=== PATIENT | male | born 1970 | race Two or more races ===

== ENCOUNTER 2016-03-16 09:46 | Emergency (ER) | payer OTHER, BC ==
[~2016-03-16] VITALS: Ht 167.6 cm; Wt 81.6 kg
[2016-03-16 10:01] VITALS: BP 131/70
--- NOTE | 2016-03-16 10:15 | Emergency Room Report ---
History of Present Illness General Chief Complaint: Sore Throat Source: Patient Present Illness HPI Patient is a 46-year-old male presented after increased sore throat and cough. The patient had gradual onset of symptoms was yesterday. He had he denied past medical history. The patient not been vomiting. He had gradual onset of a mild headache. He denied any neck stiffness. He noted multiple sick contacts at work. The patient stated that he had generalized body aches. Denied any skin rash. Allergies: Coded Allergies: No Known Allergies (Unverified , 03/16/16) Patient History Past Medical History: see triage record Reviewed Nursing Documentation: PMH: Agreed, PSxH: Agreed Nursing Documentation-PMH Past Medical History: No Stated History Review of Systems All Other Systems: negative except mentioned in HPI Physical Exam Vital Signs Date Time Temp Pulse Resp B/P Pulse Ox O2 Delivery O2 Flow Rate FiO2 03/16/16 09:56 100.4 67 16 131/70 100 Room Air General Appearance: well appearing, no apparent distress, alert, GCS 15 Head: normocephalic, atraumatic ENT: hearing grossly normal, normal voice Neck: full range of motion, supple Respiratory: lungs clear, normal breath sounds, no respiratory distress, speaking full sentences Gastrointestinal: normal bowel sounds, non tender, soft Musculoskeletal: no calf tenderness Neurologic: normal inspection, alert, oriented x3, responsive, 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 The patient shows no evidence of meningismus. Patient was given oral her Profen and prescription for ibuprofen. He is advised to remain off of work. The patient is advised to follow up with primary care doctor in 1-2 days. Patient is advised to return if any worsening condition or if any changes in status that are concerning. Last Vital Signs Date Time Temp Pulse Resp B/P Pulse Ox O2 Delivery O2 Flow Rate FiO2 03/16/16 10:01 100.4 63 16 131/70 100 Room Air Status: improved Disposition: HOME, SELF-CARE Condition: Stable Marco AJuwan Mar 16, 2016 10:15
[2016-03-16] MEDS ORDERED: ADULT WAL-100 MG/5 M ORAL (10:16)
[2016-03-16] MEDS ORDERED: IBUPROFEN600 MG ORAL (10:16)
[2016-03-16 10:26] VITALS: BP 131/70
== END 2016-03-16 10:33 | disposition home or self-care (01) ==
LOC: EMR 10:22
DX: J11.1 Influenza due to unidentified influenza virus with other respiratory manifestations (principal)
CPT/HCPCS: 99283

== ENCOUNTER 2018-04-22 10:51 | Emergency (ER) | payer BC, MEDICAID, OTHER ==
[~2018-04-22] VITALS: Ht 167.6 cm; Wt 81.6 kg
[~2018-04-22 10:51] MED LIST: ADULT WAL-100 MG/5 M ORAL; IBUPROFEN600 MG ORAL
[2018-04-22] MEDS ORDERED: NKM (11:00)
--- NOTE | 2018-04-22 11:07 | NUR ---
ED Nurse Note: Pt c/o back pain with painful urination since friday. Fever friday/fri and friday. Pt is AO x4, ambulatory.
--- NOTE | 2018-04-22 12:11 | NUR ---
ED Nurse Note: Urine sent.
[2018-04-22 12:17] LABS: APPEARANCE,URINE CLEAR; BILIRUBIN, URINE NEGATIVE (NEGATIVE); COLOR,URINE PALE YELLOW; GLUCOSE, URINE (UA) NEGATIVE (NEGATIVE); KETONES,URINE NEGATIVE (NEGATIVE); LEUKOCYTE ESTERASE ,URINE NEGATIVE (NEGATIVE); NITRITE,URINE NEGATIVE (NEGATIVE); PH,URINE 7 (4.5-8.0); PROTEIN,URINE NEGATIVE (NEGATIVE); UROBILINOGEN,URINE NORMAL MG/DL (0.0-1.0)
--- NOTE | 2018-04-22 12:22 | Emergency Room Report ---
History of Present Illness General Chief Complaint: Male Urogenital Problems Source: Patient Present Illness HPI 48-year-old male patient presents the ER with multiple complaints for the past 4 days. Reports subjective fever and cough symptoms at home. Also complaining of pain with urinating. Denies blood in his urine. Denies penile discharge. Reports any sexual monogamous relationship with his , denies concern for STI. Denies vomiting or diarrhea. Denies chest pain or shortness of breath. Reports symptoms during this time. States is not taking medication for relief of symptoms. Reports history of similar symptoms in the past. Reports generalized muscle aches and pains. Reports he took TheraFlu on days 1 and 2 of his symptoms and that helped get rid of his fever. Denies testicular pain or swelling. Denies genital lesions or rash. Reports did not receive flu vaccine this year. Also reports back pain. Denies bowel or bladder incontinence. Denies recent injury or accident. Reports able to ambulate.Denies bowel or bladder incontinence. Denies constipation. Reports pain worse with movement. Allergies: Coded Allergies: No Known Allergies (Unverified , 03/16/16) Patient History Past Medical History: see triage record Reviewed Nursing Documentation: PMH: Agreed; PSxH: Agreed Nursing Documentation-PMH Past Medical History: No Stated History Review of Systems All Other Systems: negative except mentioned in HPI Physical Exam Vital Signs Date Time Temp Pulse Resp B/P (MAP) Pulse Ox O2 Delivery O2 Flow Rate FiO2 04/22/18 10:57 99.0 67 18 145/83 98 Room Air Sp02 EP Interpretation: reviewed, normal General Appearance: well appearing, no apparent distress, alert, GCS 15, non- toxic Head: normocephalic, atraumatic Eyes: bilateral eye normal inspection, bilateral eye PERRL ENT: hearing grossly normal, normal pharynx, no angioedema, normal voice, uvula midline, moist mucus membranes Neck: full range of motion, no meningismus, no bony tend Respiratory: lungs clear, normal breath sounds, no rhonchi, no respiratory distress, no accessory muscle use, no wheezing, speaking full sentences Cardiovascular #1: regular rate, rhythm, no edema Gastrointestinal: non tender, soft, no mass, non-distended, no guarding, no rebound Genitourinary: no CVA tenderness Musculoskeletal: back normal, digits/nails normal, gait/station normal, normal range of motion, non-tender Neurologic: alert, oriented x3, responsive, motor strength/tone normal, sensory intact Psychiatric: mood/affect normal Skin: no rash Lymphatic: no adenopathy Medical Decision Making PA Attestation Dr. Strickland is my supervising Physician whom patient management has been discussed with. Diagnostic Impression: Primary Impression: Influenza-like symptoms Additional Impression: Dysuria ER Course Pt presents to ED c/o flu-like symptoms and dysuria. DDX considered but are not limited to influenza, viral URI, pneumonia, strep throat, rhinitis, sinusitis, otitis media, otitis externa, cystitis, pyelonephritis, STI, hydronephrosis, kidney stones, sprain, strain. No abdominal TTP, negative obturator, negative Sullivan, negative Rovsing, low suspicion for cholecystitis or appendicitis, does not require imaging or labs at this time. No bowel or bladder incontinence, low suspicion for cauda equina. No acute injury or trauma, does not require x-ray at this time, low suspicion for fracture. Denies acute injury or trauma, does not require xray at this time, low suspicion for fracture. VITAL SIGNS are WNL, patient is afebrile. ER COURSE: Lungs clear to auscultation, no wheezes, rhonci or rales. patient afebrile. Low suspicion for pneumonia, will not order CXR at this time. no tonsillar exudates, no pharyngeal erythema, history of cough, no fever, no stridor, uvula midline, low suspicion for peritonsillar abscess. UA results negative, do not indicate UTI, will not treat with abx. If concern for STI, followup with STI clinic for testing and treatment. Denies STI concern. Back pain likely muscular skeletal nature, advised patient on rest ice and heat , take Motrin for pain symptoms. Likely viral etiology of symptoms. Symptomatic treatment. drink plenty of fluids. Salt water gargles for sore throat. Followup with PCP for further treatment and/or referral as needed. DISCHARGE: At this time pt is stable for d/c to home. Patient is resting comfortably, in no acute distress, nontoxic appearing. Patient to take medications as instructed Will provide with patient care instructions and any necessary prescriptions. Care plan and follow-up instructions provided. Patient instructed to follow-up with primary care provider in 3 - 5 days. Patient questions asked and answered. Patient reports understanding and agreement to treatment plan. ER precautions given. Patient instructed to return to ER immediately for any new or worsening of symptoms including but not limited to increasing SOB, persistent fever, intractable vomiting. - Please note that this Emergency Department Report was dictated using Live[employer] aluminum sheet technology software, occasionally this can lead to erroneous entry secondary to interpretation by the dictation equipment. Labs Test 04/22/18 11:15 Urine Color Pale yellow Urine Appearance Clear Urine pH 7 (4.5-8.0) Urine Specific [place] 1.015 (1.005-1.035) Urine Protein Negative (NEGATIVE) Urine Glucose (UA) Negative (NEGATIVE) Urine Ketones Negative (NEGATIVE) Urine Blood Negative (NEGATIVE) Urine Nitrite Negative (NEGATIVE) Urine Bilirubin Negative (NEGATIVE) Urine Urobilinogen Normal MG/DL (0.0-1.0) Urine Leukocyte Esterase Negative (NEGATIVE) Last Vital Signs Date Time Temp Pulse Resp B/P (MAP) Pulse Ox O2 Delivery O2 Flow Rate FiO2 04/22/18 10:57 99.0 67 18 145/83 98 Room Air Disposition: HOME, SELF-CARE Condition: Stable Scripts D-Methorphan/PE/Acetaminophen (Sudafed PE Pressure+Pain+Cough) 1 Each Tablet 1 EACH PO BID, #24 TAB Prov: All Vieyra 04/22/18 Ibuprofen* (MOTRIN*) 600 Mg Tablet 600 MG ORAL Q8H PRN for For Pain, #30 TAB 0 Refills Prov: All Vieyra 04/22/18 Referrals: NON PHYSICIAN (PCP) Patient Instructions: Dysuria, Influenza, Adult, [id number] Additional Instructions: Followup with primary care provider and discuss referral to . Symptomatic care and supportive treatment at home. Advised on rest. Drink plenty of fluids. Take medications as directed. Patient questions asked and answered. ER precautions given, patient instructed to return to ER immediately for any new or worsening of symptoms including but not limited to fever greater than 5 days, intractable vomiting, abdominal pain, chest pain, shortness of breath. All Vieyar Apr 22, 2018 12:22
[2018-04-22] MEDS ORDERED: IBUPROFEN600 MG ORAL (12:40)
[2018-04-22] MEDS ORDERED: SUDAFED PE PRE1 EACH PO (12:40)
[2018-04-22 12:50] VITALS: BP 137/78
--- NOTE | 2018-04-22 13:14 | NUR ---
ED Nurse Note: Patient is being discharged from medical care with prescriptions. Awake, alert and oriented x3. ID band were removed. Patient ambulated out with all personal belongings with steady gait.
== END 2018-04-22 12:50 | disposition home or self-care (01) ==
LOC: EMR 12:13
DX: R50.9 Fever, unspecified (principal); R05 Cough; R39.198 Other difficulties with micturition; M79.10 Myalgia, unspecified site; M54.9 Dorsalgia, unspecified
CPT/HCPCS: 81003; 99283

== ENCOUNTER 2019-03-25 10:42 | Emergency (ER) | payer MEDICAID ==
[~2019-03-25] VITALS: Ht 170.2 cm; Wt 77.1 kg
[~2019-03-25 10:42] MED LIST changes: +NKM; +SUDAFED PE PRE1 EACH PO
[2019-03-25 10:51] VITALS: BP 130/85
--- NOTE | 2019-03-25 11:00 | NUR ---
ED Nurse Note: PT ambulated into ED from home CO headache, chest pain, generalized weakness for 2 days. Pt denies radiating pain. Pt reports chest pain worsens only when he coughs or breathes heavy. Pt reports coughing up green sputum for last 2 days. VS in stable condition, no s/s of distress. ERMD at bedside
[2019-03-25] MEDS ORDERED: TAMIFLU75 MG ORAL (11:11)
[2019-03-25] MEDS ORDERED: IBUPROFEN600 MG ORAL (11:11)
--- NOTE | 2019-03-25 11:13 | Emergency Room Report ---
History of Present Illness General Chief Complaint: Headache Source: Patient Present Illness HPI Patient presents with complaints of body aches headache general malaise Starting around midnight last night patient has a mild cough Denies any vomiting or diarrhea No obvious documented fevers denies any posterior neck pain or photophobia Denies any recent travel Allergies: Coded Allergies: No Known Allergies (Unverified , 03/16/16) Patient History Past Medical History: see triage record Reviewed Nursing Documentation: PMH: Agreed; PSxH: Agreed Nursing Documentation-PMH Past Medical History: No Stated History Review of Systems All Other Systems: negative except mentioned in HPI Physical Exam Vital Signs Date Time Temp Pulse Resp B/P (MAP) Pulse Ox O2 Delivery O2 Flow Rate FiO2 03/25/19 10:51 98.8 87 17 134/86 (102) 98 Room Air Sp02 EP Interpretation: reviewed, normal General Appearance: well appearing, no apparent distress Head: normocephalic, atraumatic Eyes: bilateral eye PERRL, bilateral eye EOMI ENT: hearing grossly normal, normal pharynx, TMs + canals normal, uvula midline Neck: full range of motion, supple, no meningismus, no bony tend Respiratory: lungs clear, normal breath sounds, no rhonchi, no respiratory distress, no retraction, no accessory muscle use Cardiovascular #1: normal peripheral pulses, regular rate, rhythm, no edema, no gallop, no JVD, no murmur Gastrointestinal: normal bowel sounds, non tender, soft, no mass, no organomegaly, non-distended, no guarding, no hernia, no pulsatile mass, no rebound Genitourinary: no CVA tenderness Musculoskeletal: normal inspection Neurologic: motor strength/tone normal, camp coordinator III-XII nml as tested, oriented x3 , sensory intact, responsive Psychiatric: mood/affect normal Skin: no rash Lymphatic: normal inspection, no adenopathy Medical Decision Making Diagnostic Impression: Primary Impression: Headache Additional Impression: flu symptoms ER Course Given the patient's history and presentation multiple differentials and consideration including but not limited to meningitis, flu, URI the exam and the history appears to be mostly consistent with flulike symptoms Patient does not appear septic or toxic Is hemodynamically stable and will have initial conservative outpatient trial Last Vital Signs Date Time Temp Pulse Resp B/P (MAP) Pulse Ox O2 Delivery O2 Flow Rate FiO2 1/16/20 10:51 98.8 87 17 134/86 (102 98 Room Air Status: improved Disposition: HOME, SELF-CARE Condition: Improved Scripts Ibuprofen* (MOTRIN*) 600 Mg Tablet 600 MG ORAL Q8H PRN for For Pain, #20 TAB 0 Refills Prov: Cindy Galicia DO 03/25/19 Oseltamivir Phosphate (Tamiflu) 75 Mg Capsule 75 MG ORAL TWICE A DAY for 5 Days, CAP Prov: Cindy Galicia DO 03/25/19 Referrals: [facility] Departure Forms: Return to Work Return to Work in (Days): 2 Return to Work Date: Mar 28, 2019 Patient Instructions: Influenza, Adult, [id number] Additional Instructions: Patient is provided with the discharge instructions notified to follow up with primary doctor in the next 2-3 days otherwise return to the er with any worsening symptoms. Please note that this report is being documented using Teramind technology. This can lead to erroneous entry secondary to incorrect interpretation by the dictating instrument. Cindy Galicia DO Mar 25, 2019 11:13
[2019-03-25 11:34] VITALS: BP 124/84
--- NOTE | 2019-03-25 11:34 | NUR ---
ER DISCHARGE NOTE: Patient is cleared to be discharged home per ERMD, pt is aox4, on room air, with stable vital signs. pt was given dc and prescription instructions, pt was able to verbalize understanding, pt id band removed. pt is able to ambulate with steady gait. pt took all belongings.
== END 2019-03-25 11:34 | disposition home or self-care (01) ==
LOC: EMR 11:20
DX: J11.1 Influenza due to unidentified influenza virus with other respiratory manifestations (principal); R51 Headache
CPT/HCPCS: 99282

== ENCOUNTER 2020-02-14 10:19 | Emergency (ER) | payer MEDICAID ==
[~2020-02-14] VITALS: Ht 167.6 cm; Wt 86.2 kg
[~2020-02-14 10:19] MED LIST changes: +TAMIFLU75 MG ORAL
[2020-02-14 10:30] VITALS: BP 128/73
--- NOTE | 2020-02-14 10:30 | NUR ---
ED Nurse Note: Pt walked in from home c/o right sided facial droop and tingling pain on right shoulder/back x 3 days. Respirations even and unlabored on room air. Vitals stable as documented. A+Ox4, speaking in complete sentences. Strength strong and equal bilaterally.
--- NOTE | 2020-02-14 10:43 | Emergency Room Report ---
History of Present Illness General Chief Complaint: Facial weakness Source: Patient Present Illness [facility] Disclaimer: Please note that this report is being documented using [employer] technology. This can lead to erroneous entry secondary to incorrect interpretation by the dictating instrument. HPI: 50-year-old otherwise healthy male presents for facial weakness and numbness. He reports symptoms present 3 days. He reported with tingling and numbness over the right side of his face progressing to weakness. He notes drooping of the face, dry eye. Denies headache. Reports some twitching of the left eye. Intermittent blurred vision. Denies nausea, vomiting, fever, chills, rhinorrhea, sinusitis, ear pain or trauma. Denies rash or skin breakdown. Denies sore throat, cough congestion, exposure to sick contacts, other changes in his health. Does not take any medications. Denies recent insect bites. PMH: Denied PSH: Denied Allergies: Denied Social Hx: Denied Allergies: Coded Allergies: No Known Allergies (Unverified , 03/16/16) Review of Systems All Other Systems: negative except mentioned in HPI Physical Exam General: Awake and alert, no acute distress HEENT: NC/AT. EOMI. PERRLA. Visual osullivan are full. No nystagmus. There is right-sided facial droop involving the forehead. Incomplete closure of the right eyelid. Unable to raise the right eyebrow. Left side appears unaffected. Cardiovascular: RRR. S1 and S2 normal. No murmur appreciated Resp: Normal work of breathing. No cough, wheezing or crackles appreciated Abdomen: Abdomen is soft, nondistended. Nontender Skin: Intact. No abrasions, laceration or rash over the exposed skin MSK: Normal tone and bulk. Moving all extremities. No obvious deformity. There is no drift in the upper or lower extremities bilaterally. Neuro: Awake and alert. Mentating appropriately. No dysarthria, no ataxia on [id number] or [id number] testing. Sensation to light touch is intact over the upper and lower extremities. The patient has intact speech with good repetition, comprehension. Fund of knowledge is full. No aphasia, no neglect. Medical Decision Making Diagnostic Impression: Primary Impression: Contreras's palsy Additional Impression: Headache ER Course 50-year-old male presents for right-sided facial droop 3 days duration. Concern for space-occupying mass, Contreras's palsy, Dina Bee syndrome, central lesion, atypical migraine, focal seizure among others. Patient's presentation is most consistent with Contreras's palsy however given the intermittent blurred vision and the spasticity of the left eyelid CT scan was obtained to evaluate for space-occ upying lesion. No abnormalities identified on CT. Labs unremarkable. Most consistent with Contreras's palsy and will treat with prednisone and azithromycin. No evidence of [place] Bee syndrome. Patient is otherwise stable and well- appearing. Prescribed lubricating eyedrops and patient will cover her eye at night. Discussed reasons to return to the ER. He understands and agrees with the treatment plan. Disposition: HOME, SELF-CARE Condition: Stable Scripts Dextran 70/Hypromellose (ARTIFICIAL TEARS EYE DROPS*) 15 Ml Drops 1 DROP BOTH EYES TID, #15 ML 0 Refills Prov: Anant Blanco MD 02/14/20 Valacyclovir Hcl (VALACYCLOVIR) 1,000 Mg Tablet 1000 MG ORAL TID for 7 Days, #21 TAB Prov: Anant Blanco MD 02/14/20 Prednisone* (PREDNISONE*) 20 Mg Tablet 60 MG ORAL DAILY for 7 Days, #21 TAB Prov: Anant Blanco MD 02/14/20 Referrals: NOT CHOSEN IPA/,REFERRING (PCP) Anant Blanco MD Feb 14, 2020 10:43
--- NOTE | 2020-02-14 11:37 | Diagnostic Imaging Report ---
EXAM: CT CT Head no Contrast INDICATION: Altered mental status. Weakness. TECHNIQUE: Axial images of the brain were obtained with subsequent sagittal and coronal reformats. All CT scans at this facility are performed using dose modulation techniques as appropriate to a performed exam including the following: automated exposure control with adjustment of the mA and/or kV according to patient size. COMPARISON STUDY: None. RADIATION DOSE: CTDIvol: 53.4 mGy DLP: 1098.9 mGy-cm Dose information generated by the CT scanner is available in PACS. FINDINGS: There is normal symmetry and normal puckett-white differentiation. There is no acute large territory cortical infarct, hemorrhage, mass effect or shift. Ventricles and cisterns as well as brainstem and posterior fossa appear unremarkable. The sellar region is normal. Sinuses, mastoid air cells and bony calvarium appear intact. IMPRESSION: NO ACUTE INTRACRANIAL ABNORMALITY.
[2020-02-14 11:48] LABS: BASOPHILS % (AUTO) 1.1 % (0.0-2.0); EOSINOPHILS % (AUTO) 0.6 % (0.0-3.0); HEMOGLOBIN 15.3 G/DL (14.2-18.0); MEAN CORPUSCULAR VOLUME 86 FL (80-99); MONOCYTES % (AUTO) 6.2 % (1.0-10.0); NEUTROPHILS % (AUTO) 73.1 % (45.0-75.0); PLATELET COUNT 168 K/UL (150-450); RED BLOOD COUNT 5.12 M/UL (4.70-6.10); RED CELL DISTRIBUTION WIDTH 13.6 % (11.6-14.8); WHITE BLOOD COUNT 5.1 K/UL (4.8-10.8)
[2020-02-14 11:58] LABS: ANION GAP 9 mmol/L (5-15); BLOOD UREA NITROGEN 11 mg/dL (7-18); CALCIUM 9.1 MG/DL (8.5-10.1); CARBON DIOXIDE 28 MMOL/L (21-32); CHLORIDE 101 MMOL/L (98-107); CREATININE 0.9 MG/DL (0.55-1.30); POTASSIUM 3.9 MMOL/L (3.5-5.1); SODIUM 138 MMOL/L (136-145)
[2020-02-14] MEDS ORDERED: VALACYCLOVIR1000 MG ORAL (12:04)
[2020-02-14] MEDS ORDERED: ARTIFICIAL TEAR15 ML BOTH EYES (12:04)
[2020-02-14] MEDS ORDERED: PREDNISONE20 MG ORAL (12:04)
[2020-02-14 12:30] VITALS: BP 133/71
--- NOTE | 2020-02-14 12:30 | NUR ---
ER DISCHARGE NOTE:Patient is cleared to be discharged per ERMD, pt is aox4, on room air, with stable vital signs. pt was given dc and prescription instructions, pt was able to verbalize understanding, pt id band and iv site removed without complications. pt is able to ambulate with steady gait. pt took all belongings.
== END 2020-02-14 12:30 | disposition home or self-care (01) ==
LOC: EMR 10:39
DX: G51.0 Bell's palsy (principal); R51.9 Headache, unspecified
CPT/HCPCS: 36415; 70450; 80048; 85025; 93005; J7512; Z7502; 99284